=== PATIENT | female | born 1995 | race African-American/Black ===

== ENCOUNTER 2020-10-04 23:52 | Emergency (ER) | payer MEDICAID ==
[~2020-10-04] VITALS: Ht 165.1 cm; Wt 55.0 kg
[2020-10-05 00:26] VITALS: BP 118/67
[2020-10-05] MEDS ORDERED: IBUP-2029 MT (01:07)
[2020-10-05] MEDS ORDERED: IBUPROFEN 600MG TABLET PO ONE (01:15)
== END 2020-10-05 01:37 | disposition home or self-care (01) ==
LOC: ER 23:52
DX: S92.424A Nondisplaced fracture of distal phalanx of right great toe, initial encounter for closed fracture (principal); W22.8XXA Striking against or struck by other objects, initial encounter; Y93.89 Activity, other specified; Y92.018 Other place in single-family (private) house as the place of occurrence of the external cause
CPT/HCPCS: 73630; 81025; 99283; Z7610